=== PATIENT | female | born 1960 | race Two or more races ===

== ENCOUNTER 2017-12-04 05:36 | Inpatient (IN) | payer OTHER ==
[2017-12-04] VITALS (15 sets, daily range): BP systolic 108–133; BP diastolic 55–67
[~2017-12-04] VITALS: Ht 162.6 cm; Wt 70.8 kg
[~2017-12-04 05:36] MED LIST: ALBUTEROL SULF8.5 GM INH; NKM
[2017-12-04] MEDS ORDERED: Thrombin 5000 units TOPIC ONE ×2 (06:46→08:42)
[2017-12-04] MEDS ORDERED: Gelfoam Absorbable 1gm powder pkt TOPIC ONE (06:47)
[2017-12-04] MEDS ORDERED: Thrombin 5000 units spray kit TOPIC ONE (06:47)
[2017-12-04] MEDS ORDERED: Bupivacaine 0.5% Inj 30 ml vial INJ ONE (06:47)
[2017-12-04] MEDS ORDERED: Surgicel 4in x 8in TOPIC ONE (06:47)
[2017-12-04] MEDS ORDERED: Bacitracin 50000 Units Vial ONE (06:47)
[2017-12-04] MEDS ORDERED: EPINEPHrine 1mg/1ml Amp ONE (06:48)
--- NOTE | 2017-12-04 07:01 | Pre-Procedure Note/Attestation ---
Pre-Procedure Note/Attestation Complete Prior to Procedure Planned Procedure: not applicable Procedure Narrative: For C4-5 ACDF Neck and arm pain. Attestation I attest that I discussed the nature of the procedure; its benefits; risks and complications; and alternatives (and the risks and benefits of such alternatives ), prior to the procedure, with the patient (or the patient's legal customer success representative). I attest that, if there was a reasonable possibility of needing a blood transfusion, the patient (or the patient's legal customer success representative) was given the [facility] standardized written summary, pursuant to the Richie Canones Blood Safety Act ([place] Health and Safety Code # 1645, as amended). I attest that I re-evaluated the patient just prior to the surgery and that there has been no change in the patient's H&P, except as documented below: TJ ALLEN Dec 04, 2017 07:01
[2017-12-04] MEDS ORDERED: LR 1000ml 1,000 ML IVLG SCH (07:09)
[2017-12-04] MEDS ORDERED: DiphenhydrAMINE 50mg/ml Inj IVP PRN ×2 (07:15→12:44)
[2017-12-04] MEDS ORDERED: Meperidine 50mg/ml Inj(FOR RIGORS ONLY) IVP ONE (07:15)
[2017-12-04] MEDS ORDERED: LR 1000ml 1,000 ML IV SCH (07:15)
[2017-12-04] MEDS ORDERED: Meperidine 50mg/ml Inj(FOR RIGORS ONLY) IM ONE (07:15)
[2017-12-04] MEDS ORDERED: LORazepam Inj 2mg/ml 1ml IV PRN (07:15)
[2017-12-04] MEDS ORDERED: Hydromorphone 0.5mg/0.5ml inj IVP PRN (07:15)
--- NOTE | 2017-12-04 07:15 | Anethesia Preoperative Eval ---
Anesthesia Pre-op PMH/ROS General Date of Evaluation: Dec 04, 2017 Time of Evaluation: 06:55 Anesthesiologist: Maria Esther ASA Score: ASA 2 Mallampati Score Class I : Soft palate, uvula, fauces, pillars visible Class II: Soft palate, uvula, fauces visible Class III: Soft palate, base of uvula visible Class IV: Only hard plate visible Mallampati Classification: Class III Surgeon: Bill Diagnosis: HNP C4-5 Surgical Procedure: ACDF C4-5 Family History: no anesthesia problems Allergies: Coded Allergies: LATEX (Verified Allergy, Intermediate, rash, 12/01/17) HYDROCODONE (Verified Adverse Reaction, Severe, "fainting spell", 12/01/17) Medications: see eMAR Past Medical History Cardiovascular: Denies: HTN, CAD, SD, valve dz, arrhythmia, other Pulmonary: Reports: asthma, Denies: COPD, CALIN, other Gastrointestinal/Genitourinary: Denies: GERD, CRI, ESRD, other Neurologic/Psychiatric: Denies: dementia, CVA, depression/anxiety, TIA, other Endocrine: Denies: DM, hypothyroidism, steroids, other HEENT: Denies: cataract (L), cataract (R), glaucoma, WAINWRIGHT (L), WAINWRIGHT (R), other Hematology/Immune: Denies: anemia, DVT, bleeding disorder, other Musculoskeletal/Integumentary: Denies: OA, RA, DJD, DDD, edema, other PMH Narrative: Asthma PSxH Narrative: C/S, left wrist cystectomy Anesthesia Pre-op Phys. Exam Physician Exam Last Vital Signs Date Time Temp Pulse Resp B/P (MAP) Pulse Ox O2 Delivery O2 Flow Rate FiO2 12/04/17 06:39 97.9 65 20 122/67 97 Room Air Constitutional: NAD Neurologic: CN 2-12 intact Cardiovascular: RRR, no M/R/G Respiratory: CTA Gastrointestinal: S/NT/ND Airway Exam Mallampati Score: Class III MO: full ROM: full Teeth: intact Anesthesia Pre-op A/P Labs WNL Studies Pre-op Studies: EKG - NSR, CXR - NAD Risk Assessment & Plan Plan: GETA, SedLine Status Change Before Surgery: No Pre-Antibiotics Drug: Ancef Given Within 1 Hr of Incision: Yes Time Given: 07:25 JAIDA JOVEL M.D. Dec 04, 2017 07:15
--- NOTE | 2017-12-04 07:16 | Immediate Post-Op Evaluation ---
Immediate Post-Op Evalulation Immediate Post-Op Evalulation Procedure: ACDF C4-5 Date of Evaluation: Dec 04, 2017 Time of Evaluation: 10:05 IV Fluids: 2100 Blood Products: 283 PRBC Estimated Blood Loss: 1000 Blood Pressure Systolic: 118 Blood Pressure Diastolic: 67 Pulse Rate: 88 Respiratory Rate: 17 O2 Sat by Pulse Oximetry: 100 Temperature (Fahrenheit): 97.0 Pain Score (1-10): 3 Nausea: No Vomiting: No Complications No complication Patient Status: awake, patent, extubated, none Hydration Status: adequate Drug: Ancef Given Within 1 Hr of Incision: Yes Time Given: 07:25 JAIDA JOVEL M.D. Dec 04, 2017 07:16
[2017-12-04] MEDS ORDERED: Zemuron 50mg/5ml Inj IV ONE (10:00)
[2017-12-04] MEDS ORDERED: fentaNYL 100 mcg/2 mL IV ONE (10:00)
[2017-12-04] MEDS ORDERED: Propofol 200mg/20ml IV ONE (10:00)
[2017-12-04] MEDS ORDERED: NS Irrig 1000ml ONE (10:00)
[2017-12-04] MEDS ORDERED: LORazepam 1mg tab ORAL PRN (10:00)
[2017-12-04] MEDS ORDERED: Acetaminophen 650 MG SUPP RECTAL PRN (10:00)
[2017-12-04] MEDS ORDERED: Hydromorphone 0.5mg/0.5ml inj ONE (10:00)
[2017-12-04] MEDS ORDERED: Sterile Water Irrig 1000ml IRRIG ONE (10:00)
[2017-12-04] MEDS ORDERED: LR 1000ml ONE (10:00)
[2017-12-04] MEDS ORDERED: Naloxone 0.4mg/ml Inj IVP PRN (10:00)
[2017-12-04] MEDS ORDERED: Metoprolol 5mg/5ml Inj ONE (10:00)
[2017-12-04] MEDS ORDERED: Midazolam 2mg/2ml Inj ONE (10:00)
--- NOTE | 2017-12-04 10:07 | Operative Note - PDOC ---
Operative Note Operative Note Pre-op Diagnosis: Neck and right arm pain, HNP C4-5 Procedure: ACDF C4-5 Post-op Diagnosis: same as pre-op Surgeon: Bill [employer] Draftsperson: JONATHAN Allen Anesthesiologist: Maria Esther Anesthesia: general Specimen: yes Complications: yes - Intraoperative blood loss Condition: stable Estimated Blood Loss: volume - 800cc Drains: none Implant(s) used?: Yes - Medtronic Zivo plate, Medtronic Peek interbody spacer TJ ALLEN Dec 04, 2017 10:07
[2017-12-04] MEDS ORDERED: Metoclopramide 10mg/2ml Inj ONE (10:18)
[2017-12-04] MEDS ORDERED: Metoclopramide 10mg/2ml Inj IVP ONE (10:30)
[2017-12-04] MEDS ORDERED: Dexamethasone 4mg/ml vial IVP ONE (11:30)
[2017-12-04] MEDS ORDERED: Rate Change PCA 1 Each MISC PRN (11:45)
[2017-12-04] MEDS: PCA HYDROmorphone 1mg/ml 30 ML IV PRN (11:46)
[2017-12-04 11:52] LABS: HEMATOCRIT 34.3 % (37.0-47.0); HEMOGLOBIN 11.5 G/DL (12.0-16.0); MEAN CORPUSCULAR VOLUME 92 FL (80-99); PLATELET COUNT 246 K/UL (150-450); RED BLOOD COUNT 3.73 M/UL (4.20-5.40); WHITE BLOOD COUNT 18.9 K/UL (4.8-10.8)
[2017-12-04] MEDS ORDERED: PCA Education Pamphlet MISC ONE (13:00)
--- NOTE | 2017-12-04 15:45 | Operative Note - Dictated ---
DATE OF OPERATION: 12/04/2017 SURGEON: Foster Khan M.D. APPARATUS OPERATOR: Sami Lyons ANESTHESIOLOGIST: Richie Mayo M.D. ANESTHESIA: General endotracheal with intubation and arterial blood pressure monitoring. PREOPERATIVE DIAGNOSIS: Large herniation at C4-C5 causing cord compression and cord changes reflected on MRI. POSTOPERATIVE DIAGNOSIS: Large central and right-sided disc herniation at the C4-C5 cervical level. OPERATIVE PROCEDURES: Anterior approach to the cervical spine with anterior annulotomy, nuclear diskectomy, partial vertebrectomy, bilateral microneurolysis and foraminotomy, open reduction internal fixation using a PEEK cage lordotic 7 mm anteriorly with 11 mm depth and 14 width, and fixation with a 21 mm dynamic anterior compression plate using four 13 mm compression screws. OPERATIVE PROCEDURE IN DETAIL: The patient was prepped and draped after induction of satisfactory general endotracheal anesthesia. The patient was in the supine position. A bolster was placed on her head with 15 pounds of proximal traction. A bolster was placed between her shoulder blades and the support posterior to the neck to maintain normal lordosis. A metal clip was used to identify the level of the incision on the right side. A 1.5 inch incision was made in the skin crease on the right side coinciding with the level identified on a lateral x-ray with a marker in place. Incision was carried out through skin and subcutaneous tissue. The platysma was divided. The deep fascia was divided and the interval between the sternocleidomastoid and the trachea and esophagus medially was identified more deeply. The carotid sheath was identified on the lateral side of the dissection. The dissection was carried down to the level of spine and then centrally. Exposing the anterior spine, the paraspinous muscles were gently retracted and a peanut dissector was used to expose the anterior vertebral bodies of C4 and C5 as well as C6 to the paraspinous muscles medially and laterally. A self-retaining North-South and East-West retractors were then positioned and a lateral x-ray was taken showing a marker at C5-C6. Both retractors were adjusted to center over C4-C5 and an anterior annulotomy was accomplished. The osteophytic edge of the lower endplate of C4 was then removed with a 3 mm Kerrison. The cartilaginous endplate was then sequentially removed from front to back using larger to smaller curettes, Kerrison's, and pituitaries. There was copious bleeding from the middle of the vertebral body posteriorly when curetting the posterior disc anulus in the posterior edge of the vertebral osteophytes most vigorously on the left at the central and left side of the body of C4-C5. Bleeding was quite copious and it was necessary to use a Gel-Foam, thrombin, and platelets, as well as FloSeal to control the bleeding. The dissection was carried carefully posteriorly while having hemostasis in place until the entire posterior vertebral rim of C4 and C5 were removed and each foramen on the right and left was opened widely using a 2 mm Kerrison. The vascular structure posteriorly seemed hemangioma in character. It was in the soft tissue and not coming from the bone of the vertebral body. The posterior space was cleared of all remnants of the disc as best as could be accomplished. The PLL was released with a small angled curette and the posterior osteophytes were removed and both foramina were widely opened. Leaving hemostasis in place posteriorly, the space was then sized up to 7 mm and was smoothed with the Midas, which was also used in the primary dissection. A 7 mm lordotic cage, which was 11 mm in depth and 14 in width was chosen. A tibial allograft was not available because of a transport problem with the supplier. So, a PEEK implant with metal markers was used. The chosen spacer fit well and covered the interspace and looked well centered on both AP and lateral. Two 13 mm compression screws were used in the body of C4 and two in the body of C5 to secure the plate, which was again checked on AP and lateral. Bleeding at the end of the procedure was in good control with FloSeal and some Gel-Foam posteriorly. The wound was then closed in layers including the platysma, subcutaneous, and skin. Blood loss was quite significant perhaps 600 mL and a unit of blood was begun in the operating room as well as the patient's vital signs were all quite stable. Final x-rays revealed that the position of the implant was quite good with elevation of the disc height, normal lordosis, and normal alignment. On AP, the plate was well positioned and the screws were well secured. The patient was returned to recovery room in good condition in a compression bandage. Foster Khan M.D. DR: NEPTALI JOB#: [id number] CC:
[2017-12-04] MEDS ORDERED: Chloraseptic Spray 20mL Bottle ORAL PRN (16:45)
[2017-12-04] MEDS: ceFAZolin sod 1 GM in D5W 55 ML IV SCH ×2 (17:04→23:49)
[2017-12-04] MEDS: PCA shift volume MISC SCH (19:00)
--- NOTE | 2017-12-04 21:01 | General Progress Note ---
Assessment/Plan Assessment/Plan Neck and right arm pain, HNP C4-5 ACDF C4-5 PLAN 1. incentive spirometry 2. DVT prophylaxis 3. PT evaluation and therapy 4. Hydration 5. Pain management 6. discharge once stable with outpatient follow up Subjective Allergies: Coded Allergies: LATEX (Verified Allergy, Intermediate, rash, 12/01/17) HYDROCODONE (Verified Adverse Reaction, Severe, "fainting spell", 12/01/17) Subjective post op care noted Objective Last 24 Hour Vital Signs Date Time Temp Pulse Resp B/P (MAP) Pulse Ox O2 Delivery O2 Flow Rate FiO2 12/04/17 17:35 18 12/04/17 16:00 98.0 88 19 118/66 98 12/04/17 13:30 12 12/04/17 13:00 12 12/04/17 12:30 12 12/04/17 12:15 14 12/04/17 12:15 98.0 12/04/17 12:05 98.0 80 14 113/58 99 Nasal Cannula 3.0 12/04/17 12:00 13 12/04/17 11:50 82 15 122/59 98 Nasal Cannula 3.0 12/04/17 11:46 12 12/04/17 11:35 82 15 122/60 98 Nasal Cannula 3.0 12/04/17 11:20 80 15 118/59 98 Nasal Cannula 3.0 12/04/17 11:05 82 12 119/59 98 Nasal Cannula 3.0 12/04/17 10:50 98.0 12/04/17 10:50 83 11 133/58 98 Nasal Cannula 3.0 12/04/17 10:42 88 17 100 12/04/17 10:35 83 14 129/59 98 Simple Mask 6.0 12/04/17 10:27 82 14 119/56 98 Simple Mask 6.0 12/04/17 10:20 83 13 110/58 98 Simple Mask 6.0 12/04/17 10:05 89 13 115/55 98 Simple Mask 6.0 12/04/17 10:00 88 15 118/67 98 Simple Mask 6.0 12/04/17 09:55 97.0 93 26 120/62 98 Simple Mask 6.0 12/04/17 06:39 97.9 65 20 122/67 97 Room Air Laboratory Tests 12/04/17 11:30: White Blood Count 18.9H, Red Blood Count 3.73L, Hemoglobin 11.5L, Hematocrit 34.3L, Mean Corpuscular Volume 92, Mean Corpuscular Hemoglobin 30.7, Mean Corpuscular Hemoglobin Concent 33.4, Red Cell Distribution Width 13.0, Platelet Count 246, Mean Platelet Volume 6.9, Neutrophils (%) (Auto) , Lymphocytes (%) ( Auto) , Monocytes (%) (Auto) , Eosinophils (%) (Auto) , Basophils (%) (Auto) , Differential Total Cells Counted 100, Neutrophils % (Manual) 78H, Lymphocytes % (Manual) 13L, Monocytes % (Manual) 6, Eosinophils % (Manual) 1, Basophils % ( Manual) 0, Band Neutrophils 2, Platelet Estimate Adequate, Platelet Morphology Normal, Hypochromasia 1+ Height (Feet): 5 Height (Inches): 4.00 Weight (Pounds): 156 Objective WDWN NAD clear breath sounds bilaterally without rhonchi or wheeze [id number] without MRG NABS nontender no HSM no CCE nonfocal SONYA VEGA Dec 04, 2017 21:01
[2017-12-05] VITALS: BP 101/54
[2017-12-05 04:00] VITALS: BP 100/50
[2017-12-05] MEDS: PCA shift volume MISC SCH ×2 (07:10→19:00)
--- NOTE | 2017-12-05 07:14 | General Progress Note ---
Assessment/Plan Assessment/Plan Neck and right arm pain, HNP C4-5 ACDF C4-5 PLAN 1. incentive spirometry 2. DVT prophylaxis 3. PT evaluation and therapy 4. Hydration 5. Pain management 6. discharge once stable with outpatient follow up Subjective Allergies: Coded Allergies: LATEX (Verified Allergy, Intermediate, rash, 12/01/17) HYDROCODONE (Verified Adverse Reaction, Severe, "fainting spell", 12/01/17) Subjective post op care noted Objective Last 24 Hour Vital Signs Date Time Temp Pulse Resp B/P (MAP) Pulse Ox O2 Delivery O2 Flow Rate FiO2 12/05/17 04:00 Nasal Cannula 3.0 12/05/17 04:00 18 12/05/17 04:00 99.0 90 18 100/50 97 12/05/17 00:00 97.2 96 18 101/54 98 12/05/17 00:00 18 12/05/17 00:00 Nasal Cannula 3.0 12/04/17 20:00 98.4 89 19 108/57 99 12/04/17 20:00 18 12/04/17 20:00 Nasal Cannula 3.0 12/04/17 17:35 18 12/04/17 16:00 98.0 88 19 118/66 98 12/04/17 13:30 12 12/04/17 13:00 12 12/04/17 12:30 12 12/04/17 12:15 14 12/04/17 12:15 98.0 12/04/17 12:05 98.0 80 14 113/58 99 Nasal Cannula 3.0 12/04/17 12:00 13 12/04/17 11:50 82 15 122/59 98 Nasal Cannula 3.0 12/04/17 11:46 12 12/04/17 11:35 82 15 122/60 98 Nasal Cannula 3.0 12/04/17 11:20 80 15 118/59 98 Nasal Cannula 3.0 12/04/17 11:05 82 12 119/59 98 Nasal Cannula 3.0 12/04/17 10:50 98.0 12/04/17 10:50 83 11 133/58 98 Nasal Cannula 3.0 12/04/17 10:42 88 17 100 12/04/17 10:35 83 14 129/59 98 Simple Mask 6.0 12/04/17 10:27 82 14 119/56 98 Simple Mask 6.0 12/04/17 10:20 83 13 110/58 98 Simple Mask 6.0 12/04/17 10:05 89 13 115/55 98 Simple Mask 6.0 12/04/17 10:00 88 15 118/67 98 Simple Mask 6.0 12/04/17 09:55 97.0 93 26 120/62 98 Simple Mask 6.0 Intake and Output 12/04/17 12/05/17 19:00 07:00 Intake Total 3875 ml 925 ml Output Total 1000 ml Balance 2875 ml 925 ml Intake Oral 400 ml IV Total 3575 ml 525 ml Blood Product 300 ml Output Estimated Blood Loss 1000 ml # Voids 3 Laboratory Tests 12/04/17 11:30: White Blood Count 18.9H, Red Blood Count 3.73L, Hemoglobin 11.5L, Hematocrit 34.3L, Mean Corpuscular Volume 92, Mean Corpuscular Hemoglobin 30.7, Mean Corpuscular Hemoglobin Concent 33.4, Red Cell Distribution Width 13.0, Platelet Count 246, Mean Platelet Volume 6.9, Neutrophils (%) (Auto) , Lymphocytes (%) ( Auto) , Monocytes (%) (Auto) , Eosinophils (%) (Auto) , Basophils (%) (Auto) , Differential Total Cells Counted 100, Neutrophils % (Manual) 78H, Lymphocytes % (Manual) 13L, Monocytes % (Manual) 6, Eosinophils % (Manual) 1, Basophils % ( Manual) 0, Band Neutrophils 2, Platelet Estimate Adequate, Platelet Morphology Normal, Hypochromasia 1+ Height (Feet): 5 Height (Inches): 4.00 Weight (Pounds): 156 Objective WDWN NAD clear breath sounds bilaterally without rhonchi or wheeze [id number] without MRG NABS nontender no HSM no CCE nonfocal SONYA VEGA Dec 05, 2017 07:14
[2017-12-05 08:00] VITALS: BP 109/56
[2017-12-05] MEDS: ceFAZolin sod 1 GM in D5W 55 ML IV SCH (08:02)
--- NOTE | 2017-12-05 09:33 | General Surgery Progress Note ---
General Surgery-Progress Note Subjective Procedure Performed ACDF C4-5 with instrumentation Symptoms: improved - Patient having expected neck pain and sore throat. Objective Last 24 Hour Vital Signs Date Time Temp Pulse Resp B/P (MAP) Pulse Ox O2 Delivery O2 Flow Rate FiO2 12/05/17 08:00 97.3 92 17 109/56 93 Nasal Cannula 3.0 12/05/17 04:00 Nasal Cannula 3.0 12/05/17 04:00 18 12/05/17 04:00 99.0 90 18 100/50 97 12/05/17 00:00 97.2 96 18 101/54 98 12/05/17 00:00 18 12/05/17 00:00 Nasal Cannula 3.0 12/04/17 20:00 98.4 89 19 108/57 99 12/04/17 20:00 18 12/04/17 20:00 Nasal Cannula 3.0 12/04/17 17:35 18 12/04/17 16:00 98.0 88 19 118/66 98 12/04/17 13:30 12 12/04/17 13:00 12 12/04/17 12:30 12 12/04/17 12:15 14 12/04/17 12:15 98.0 12/04/17 12:05 98.0 80 14 113/58 99 Nasal Cannula 3.0 12/04/17 12:00 13 12/04/17 11:50 82 15 122/59 98 Nasal Cannula 3.0 12/04/17 11:46 12 12/04/17 11:35 82 15 122/60 98 Nasal Cannula 3.0 12/04/17 11:20 80 15 118/59 98 Nasal Cannula 3.0 12/04/17 11:05 82 12 119/59 98 Nasal Cannula 3.0 12/04/17 10:50 98.0 12/04/17 10:50 83 11 133/58 98 Nasal Cannula 3.0 12/04/17 10:42 88 17 100 12/04/17 10:35 83 14 129/59 98 Simple Mask 6.0 12/04/17 10:27 82 14 119/56 98 Simple Mask 6.0 12/04/17 10:20 83 13 110/58 98 Simple Mask 6.0 12/04/17 10:05 89 13 115/55 98 Simple Mask 6.0 12/04/17 10:00 88 15 118/67 98 Simple Mask 6.0 12/04/17 09:55 97.0 93 26 120/62 98 Simple Mask 6.0 I&O Intake and Output 12/04/17 12/05/17 19:00 07:00 Intake Total 3875 ml 925 ml Output Total 1000 ml Balance 2875 ml 925 ml Intake Oral 400 ml IV Total 3575 ml 525 ml Blood Product 300 ml Output Estimated Blood Loss 1000 ml # Voids 3 Dressing: dry Wound: clean, dry Drains: none Laboratory Tests Test 12/04/17 11:30 White Blood Count 18.9 K/UL (4.8-10.8) H Red Blood Count 3.73 M/UL (4.20-5.40) L Hemoglobin 11.5 G/DL (12.0-16.0) L Hematocrit 34.3 % (37.0-47.0) L Mean Corpuscular Volume 92 FL (80-99) Mean Corpuscular Hemoglobin 30.7 PG (27.0-31.0) Mean Corpuscular Hemoglobin Concent 33.4 G/DL (32.0-36.0) Red Cell Distribution Width 13.0 % (11.6-14.8) Platelet Count 246 K/UL (150-450) Mean Platelet Volume 6.9 FL (6.5-10.1) Neutrophils (%) (Auto) % (45.0-75.0) Lymphocytes (%) (Auto) % (20.0-45.0) Monocytes (%) (Auto) % (1.0-10.0) Eosinophils (%) (Auto) % (0.0-3.0) Basophils (%) (Auto) % (0.0-2.0) Differential Total Cells Counted 100 Neutrophils % (Manual) 78 % (45-75) H Lymphocytes % (Manual) 13 % (20-45) L Monocytes % (Manual) 6 % (1-10) Eosinophils % (Manual) 1 % (0-3) Basophils % (Manual) 0 % (0-2) Band Neutrophils 2 % (0-8) Platelet Estimate Adequate Platelet Morphology Normal Hypochromasia 1+ Additional Comments Patient's strength in upper extrenities is 5/5 on right and 5-/5 left (same as pre-operative). Sensation is intact. Experiencing headaches since surgery. Assessment Additional Comments Will continue to monitor neurological status while bring patien to upright position. Watching for any deterioration in neurological status. Dr. Garcia following. TJ ARGUELLO Dec 05, 2017 09:33
[2017-12-05 11:18] VITALS: BP 113/58
--- NOTE | 2017-12-05 14:01 | 48 Hour Post Anesthesia Eval ---
Post Anesthesia Evaluation Procedure: ACDF C4-5 Date of Evaluation: Dec 05, 2017 Time of Evaluation: 14:30 Blood Pressure Systolic: 113 0: 58 Pulse Rate: 92 Respiratory Rate: 18 Temperature (Fahrenheit): 97.4 O2 Sat by Pulse Oximetry: 97 Airway: patent Nausea: No Vomiting: No Pain Intensity: 2 If pain is > 6 Comment: Patient also complains of chest pain not exacerbated with chest palpation. Hydration Status: adequate Cardiopulmonary Status: EKG ordered secondary to patient's complaint of chest pain not made worse by deep palpation. Mental Status/LOC: patient returned to baseline Follow-up Care/Observations: As per surgery Post-Anesthesia Complications: No anesthetic complication Follow-up care needed: N/A JAIDA JOVEL M.D. Dec 05, 2017 14:01
[2017-12-05 15:41] LABS: BASOPHILS % (AUTO) 0.5 % (0.0-2.0); EOSINOPHILS % (AUTO) 0.1 % (0.0-3.0); HEMATOCRIT 30.4 % (37.0-47.0); HEMOGLOBIN 9.9 G/DL (12.0-16.0); LYMPHOCYTES % (AUTO) 16.1 % (20.0-45.0); MEAN CORPUSCULAR VOLUME 93 FL (80-99); MONOCYTES % (AUTO) 8.3 % (1.0-10.0); NEUTROPHILS % (AUTO) 74.9 % (45.0-75.0); PLATELET COUNT 220 K/UL (150-450); RED BLOOD COUNT 3.27 M/UL (4.20-5.40); RED CELL DISTRIBUTION WIDTH 13.2 % (11.6-14.8); WHITE BLOOD COUNT 16.1 K/UL (4.8-10.8)
[2017-12-05] MEDS: PCA HYDROmorphone 1mg/ml 30 ML IV PRN (16:03)
--- NOTE | 2017-12-05 16:05 | Diagnostic Imaging Report ---
Indication: Neck Pain Findings: Fluoroscopic views of the cervical spine were obtained. Intraoperative imaging performed. Localization image followed by a discectomy and anterior plate fusion at C4-5. IMPRESSION: Intraoperative imaging
[2017-12-05 16:49] VITALS: BP 110/64
[2017-12-05 20:00] VITALS: BP 116/58
[2017-12-06] VITALS (7 sets, daily range): BP systolic 108–128; BP diastolic 54–65
[2017-12-06] MEDS: PCA shift volume MISC SCH (07:10)
[2017-12-06] MEDS ORDERED: Sodium Chloride 500ML 1,000 ML IV ONE (09:45)
--- NOTE | 2017-12-06 11:19 | General Surgery Progress Note ---
General Surgery-Progress Note Subjective Procedure Performed ACDF C4-5 Additional Comments Patient unable to tolerate upright position, complains of headache & dizziness. Objective Last 24 Hour Vital Signs Date Time Temp Pulse Resp B/P (MAP) Pulse Ox O2 Delivery O2 Flow Rate FiO2 12/06/17 08:00 97.0 98 18 126/59 98 12/06/17 08:00 18 12/06/17 08:00 Room Air 12/06/17 05:30 99.0 100 18 108/65 98 Nasal Cannula 12/06/17 04:00 18 12/06/17 04:00 99.0 100 18 108/65 98 Nasal Cannula 2.0 12/06/17 00:08 99.6 93 18 115/57 97 Nasal Cannula 2.0 12/06/17 00:00 18 12/05/17 20:00 18 12/05/17 20:00 99.9 104 18 116/58 97 Nasal Cannula 2.0 12/05/17 16:49 98.8 100 20 110/64 99 Nasal Cannula 2.0 12/05/17 16:33 98.8 12/05/17 16:00 18 12/05/17 14:01 92 18 97 12/05/17 12:00 Nasal Cannula 2.0 12/05/17 11:23 18 12/05/17 11:18 97.4 92 18 113/58 97 Nasal Cannula 2.0 I&O Intake and Output 12/05/17 12/06/17 19:00 07:00 Intake Total 1285 ml 315 ml Balance 1285 ml 315 ml Intake Oral 480 ml 240 ml IV Total 805 ml 75 ml # Voids 3 1 Dressing: dry Wound: clean Drains: none Laboratory Tests Test 12/05/17 15:10 White Blood Count 16.1 K/UL (4.8-10.8) H Red Blood Count 3.27 M/UL (4.20-5.40) L Hemoglobin 9.9 G/DL (12.0-16.0) L Hematocrit 30.4 % (37.0-47.0) L Mean Corpuscular Volume 93 FL (80-99) Mean Corpuscular Hemoglobin 30.2 PG (27.0-31.0) Mean Corpuscular Hemoglobin Concent 32.5 G/DL (32.0-36.0) Red Cell Distribution Width 13.2 % (11.6-14.8) Platelet Count 220 K/UL (150-450) Mean Platelet Volume 6.7 FL (6.5-10.1) Neutrophils (%) (Auto) 74.9 % (45.0-75.0) Lymphocytes (%) (Auto) 16.1 % (20.0-45.0) L Monocytes (%) (Auto) 8.3 % (1.0-10.0) Eosinophils (%) (Auto) 0.1 % (0.0-3.0) Basophils (%) (Auto) 0.5 % (0.0-2.0) Additional Comments Neurologically: intact, both upper extremity strength 5/5 Right, 5-/5 Left ( same as pre-operative and since surgery). Assessment Additional Comments Feel patient is behind on fluids, will coordinate with Dr. Garcia to correct. Patient NOT ready for discharge or transfer. TJ ALLEN Dec 06, 2017 11:19
[2017-12-06] MEDS ORDERED: HYDROmorphone 1mg/ml Carpuject IVP PRN (11:45)
[2017-12-06] MEDS ORDERED: DiphenhydrAMINE 50mg/ml Inj IVP PRN (11:45)
[2017-12-06] MEDS ORDERED: HYDROmorphone 1mg/ml Carpuject SUBQ PRN (11:45)
[2017-12-06] MEDS ORDERED: Rate Change PCA 1 Each MISC PRN (11:45)
[2017-12-06] MEDS ORDERED: PCA HYDROmorphone 1mg/ml 30 ML IV PRN (11:45)
[2017-12-06] MEDS ORDERED: Naloxone 0.4mg/ml Inj IVP PRN ×2 (11:45)
--- NOTE | 2017-12-06 14:18 | General Progress Note ---
Assessment/Plan Assessment/Plan Neck and right arm pain, HNP C4-5 ACDF C4-5 PLAN 1. incentive spirometry 2. DVT prophylaxis 3. PT evaluation and therapy 4. Hydration with NS bolus; monitor hemodynamics 5. Pain management 6. discharge once stable with outpatient follow up Subjective Allergies: Coded Allergies: LATEX (Verified Allergy, Intermediate, rash, 12/01/17) HYDROCODONE (Verified Adverse Reaction, Severe, "fainting spell", 12/01/17) Subjective post op care noted orthostatic Objective Last 24 Hour Vital Signs Date Time Temp Pulse Resp B/P (MAP) Pulse Ox O2 Delivery O2 Flow Rate FiO2 12/06/17 12:04 98.1 12/06/17 12:01 98.1 82 18 128/54 97 12/06/17 12:00 18 12/06/17 12:00 Nasal Cannula 2.0 12/06/17 08:00 97.0 98 18 126/59 98 12/06/17 08:00 18 12/06/17 08:00 Room Air 12/06/17 05:30 99.0 100 18 108/65 98 Nasal Cannula 12/06/17 04:00 18 12/06/17 04:00 99.0 100 18 108/65 98 Nasal Cannula 2.0 12/06/17 00:08 99.6 93 18 115/57 97 Nasal Cannula 2.0 12/06/17 00:00 18 12/05/17 20:00 18 12/05/17 20:00 99.9 104 18 116/58 97 Nasal Cannula 2.0 12/05/17 16:49 98.8 100 20 110/64 99 Nasal Cannula 2.0 12/05/17 16:33 98.8 12/05/17 16:00 18 Intake and Output 12/05/17 12/06/17 19:00 07:00 Intake Total 2125 ml 315 ml Balance 2125 ml 315 ml Intake Oral 1320 ml 240 ml IV Total 805 ml 75 ml # Voids 6 1 Laboratory Tests 12/05/17 15:10: White Blood Count 16.1H, Red Blood Count 3.27L, Hemoglobin 9.9L, Hematocrit 30.4L, Mean Corpuscular Volume 93, Mean Corpuscular Hemoglobin 30.2, Mean Corpuscular Hemoglobin Concent 32.5, Red Cell Distribution Width 13.2, Platelet Count 220, Mean Platelet Volume 6.7, Neutrophils (%) (Auto) 74.9, Lymphocytes (% ) (Auto) 16.1L, Monocytes (%) (Auto) 8.3, Eosinophils (%) (Auto) 0.1, Basophils (%) (Auto) 0.5 Height (Feet): 5 Height (Inches): 4.00 Weight (Pounds): 156 Objective WDWN NAD clear breath sounds bilaterally without rhonchi or wheeze [id number] without MRG NABS nontender no HSM no CCE nonfocal SONYA VEGA Dec 06, 2017 14:18
--- NOTE | 2017-12-06 15:49 | Cardiology Report ---
APPROVED REPORT EKG Measurement Heart [id number] CT [id number] Normal sinus rhythm Normal ECG
[2017-12-06] MEDS ORDERED: PCA shift volume MISC SCH (19:00)
[2017-12-06] MEDS ORDERED: Bisacodyl EC 5mg tab ORAL PRN (22:15)
[2017-12-07] VITALS: BP 111/67
[2017-12-07 04:00] VITALS: BP 131/72
[2017-12-07 07:52] VITALS: BP 128/67
--- NOTE | 2017-12-07 08:26 | General Progress Note ---
Assessment/Plan Assessment/Plan Neck and right arm pain, HNP C4-5 ACDF C4-5 PLAN 1. incentive spirometry 2. DVT prophylaxis 3. PT evaluation and therapy 4. encourage hydration 5. Pain management 6. discharge in am Subjective Allergies: Coded Allergies: LATEX (Verified Allergy, Intermediate, rash, 12/01/17) HYDROCODONE (Verified Adverse Reaction, Severe, "fainting spell", 12/01/17) Subjective post op care noted orthostasis improved Objective Last 24 Hour Vital Signs Date Time Temp Pulse Resp B/P (MAP) Pulse Ox O2 Delivery O2 Flow Rate FiO2 12/07/17 07:52 98.5 78 18 128/67 99 Nasal Cannula 2.0 12/07/17 04:15 19 12/07/17 04:00 98.1 90 18 131/72 97 12/07/17 00:04 19 12/07/17 00:00 97.9 75 18 111/67 98 12/06/17 20:00 18 12/06/17 20:00 98.1 82 18 125/65 98 12/06/17 16:47 98.1 12/06/17 16:00 18 12/06/17 16:00 Nasal Cannula 2.0 12/06/17 16:00 98.1 73 18 112/58 99 12/06/17 12:04 98.1 12/06/17 12:01 98.1 82 18 128/54 97 12/06/17 12:00 Nasal Cannula 2.0 12/06/17 12:00 Nasal Cannula 2.0 12/06/17 12:00 18 12/06/17 12:00 Nasal Cannula 2.0 Intake and Output 12/06/17 12/07/17 19:00 07:00 Intake Total 675 ml 1240 ml Balance 675 ml 1240 ml Intake Oral 340 ml IV Total 675 ml 900 ml # Voids 3 4 Height (Feet): 5 Height (Inches): 4.00 Weight (Pounds): 156 Objective WDWN NAD clear breath sounds bilaterally without rhonchi or wheeze [id number] without MRG NABS nontender no HSM no CCE nonfocal SONYA VEGA Dec 07, 2017 08:26
[2017-12-07 12:00] VITALS: BP 137/68
--- NOTE | 2017-12-07 12:45 | General Surgery Progress Note ---
General Surgery-Progress Note Subjective Procedure Performed ACDF C4-5 Chief Complaint: Headach and low back pain Symptoms: improved Objective Last 24 Hour Vital Signs Date Time Temp Pulse Resp B/P (MAP) Pulse Ox O2 Delivery O2 Flow Rate FiO2 12/07/17 12:00 97.5 72 18 137/68 98 12/07/17 08:00 18 12/07/17 07:52 98.5 78 18 128/67 99 Nasal Cannula 2.0 12/07/17 04:15 19 12/07/17 04:00 98.1 90 18 131/72 97 12/07/17 00:04 19 12/07/17 00:00 97.9 75 18 111/67 98 12/06/17 20:00 18 12/06/17 20:00 98.1 82 18 125/65 98 12/06/17 16:47 98.1 12/06/17 16:00 18 12/06/17 16:00 Nasal Cannula 2.0 12/06/17 16:00 98.1 73 18 112/58 99 I&O Intake and Output 12/06/17 12/07/17 19:00 07:00 Intake Total 675 ml 1240 ml Balance 675 ml 1240 ml Intake Oral 340 ml IV Total 675 ml 900 ml # Voids 3 4 Dressing: dry Wound: clean Drains: none Additional Comments Motor strength: Right Upper 5/5, Left Upper 5-/5. Assessment Additional Comments Patient tolerated upright posture and walking yesterday after fluid bolus. Plan is to hydrate, D/C [employer]< ambulate and place in hard cervical collar. If tolerates, may consider discharge in AM. Dr. Garcia following. TJ ALLEN Dec 07, 2017 12:45
[2017-12-07 16:00] VITALS: BP 152/76
[2017-12-07] MEDS ORDERED: Milk of Magnesia 30ml Ud ORAL PRN (20:15)
[2017-12-07 20:39] VITALS: BP 148/71
[2017-12-08] VITALS: BP 140/80
[2017-12-08 04:00] VITALS: BP 152/81
[2017-12-08 08:24] VITALS: BP 119/74
--- NOTE | 2017-12-08 08:26 | General Progress Note ---
Assessment/Plan Assessment/Plan Neck and right arm pain, HNP C4-5 ACDF C4-5 PLAN 1. incentive spirometry 2. DVT prophylaxis 3. PT evaluation and therapy 4. encourage hydration 5. Pain management 6. discharge today Subjective Allergies: Coded Allergies: LATEX (Verified Allergy, Intermediate, rash, 12/01/17) HYDROCODONE (Verified Adverse Reaction, Severe, "fainting spell", 12/01/17) Subjective post op care noted cleared for dc Objective Last 24 Hour Vital Signs Date Time Temp Pulse Resp B/P (MAP) Pulse Ox O2 Delivery O2 Flow Rate FiO2 12/08/17 08:24 97.9 83 20 119/74 97 12/08/17 04:00 99.1 87 17 152/81 99 12/08/17 03:00 99.1 12/08/17 00:00 98.1 75 19 140/80 95 12/07/17 20:39 98.4 72 18 148/71 96 12/07/17 16:00 98.8 77 18 152/76 98 12/07/17 12:00 97.5 72 18 137/68 98 Intake and Output 12/07/17 12/08/17 19:00 07:00 Intake Total 75 ml 1400 ml Balance 75 ml 1400 ml Intake Oral 500 ml IV Total 75 ml 900 ml # Voids 4 Height (Feet): 5 Height (Inches): 4.00 Weight (Pounds): 156 Objective WDWN NAD clear breath sounds bilaterally without rhonchi or wheeze [id number] without MRG NABS nontender no HSM no CCE nonfocal SONYA VEGA Dec 08, 2017 08:26
[2017-12-08] MEDS ORDERED: Tubing IV Secondary IV ONE (10:26)
[2017-12-08] MEDS ORDERED: D5NS 1000ml IV ONE (10:26)
[2017-12-08] MEDS ORDERED: NS 500ML ONE (10:26)
--- NOTE | 2017-12-11 13:57 | Discharge Summary ---
Discharge Summary Hospital Course Date of Admission Dec 04, 2017 at 05:36 Date of Discharge Dec 08, 2017 at 10:27 Admitting Diagnosis Neck and right arm pain, herniate nucleus pulposa C4-5 Reason for Hospitalization: elective surgery HPI Lyubov Groves is a 57 year old female who was admitted on Dec 04, 2017 at 05:36 for neck and right arm pain, herniated nucleus pulposa C4-5. patient was admitted for elective surgery Consultations dr Garcia -IM Procedures s/p 12/04/[address] Khan Anterior approach to the cervical spine with anterior annulotomy, nuclear diskectomy, partial vertebrectomy, bilateral microneurolysis and foraminotomy, open reduction internal fixation using a PEEK cage lordotic 7 mm anteriorly with 11 mm depth and 14 width, and fixation with a 21 mm dynamic anterior compression plate using four 13 mm compression screws. Hospital Course s/p surgery initially with Iv fluids diet slowly started as tolerated, soft throat lozenges prn neurovascular intact pain management PT eval and ambulated IS at the bedside IS spirometry, encourage to gomez while in bed patient steadily improved after surgery: n/v intact, pain controlled, ambulated, dressing C/D/I tolerated diet, voided freely cleared for dc with outpatient fup with surgeon cervical collar as instructed FINAL DIAGNOSIS large central and right-sided disc herniation at C4-C5 s/p anterior cervical dissection and fusion C4-5 Discharge Medications Continued Medications: Albuterol Sulfate* (Albuterol Sulfate Mdi*) 8.5 Gm Hfa.aer.ad 2 PUFF INH PRN PRN for Shortness of Breath, #1 INH 0 Refills Discharge Condition Upon Discharge: stable Discharge Disposition Patient was discharged to Home () Discharge Diagnoses: Discharge Instructions Discharge Instructions Special Instructions I have been assigned to complete a D/C Summary on this account. I was not involved in the patient management Aniya Sotomayor NP ([facility]) Dec 11, 2017 13:57
== END 2017-12-08 10:27 | disposition home or self-care (01) | DRG 473 ==
LOC: SDSOVERFLO 05:36 → 3E 11:55
PROC: 0RG10A0 Fusion of Cervical Vertebral Joint with Interbody Fusion Device, Anterior Approach, Anterior Column, Open Approach (ICD-10-PCS; principal; 2017-12-04 07:00)
PROC: 0RB30ZZ Excision of Cervical Vertebral Disc, Open Approach (ICD-10-PCS; principal; 2017-12-04 07:00)
PROC: 30233N1 Transfusion of Nonautologous Red Blood Cells into Peripheral Vein, Percutaneous Approach (ICD-10-PCS; principal; 2017-12-04 07:00)
DX: M50.121 Cervical disc disorder at C4-C5 level with radiculopathy (principal); M54.5 Low back pain; R51 Headache; Z88.6 Allergy status to analgesic agent; V89.2XXS Person injured in unspecified motor-vehicle accident, traffic, sequela
CPT/HCPCS: 36415; 72040; 76001; 85007; 85025; 86850; 86900; 86901; 86920; 87081; 93005; 94003; 94150; J2250; J2405; J2765